=== PATIENT | female | born 1950 | race Caucasian/White ===

== ENCOUNTER → 2020-04-11 09:00 | Outpatient (BNVA) | payer MEDICARE, SELFPAY | PROVIDERS: Visit Provider Nurse Practitioner Family | DX: Z87.19 Personal history of other diseases of the digestive system (principal); Z76.89 Persons encountering health services in other specified circumstances; Z68.28 Body mass index [BMI] 28.0-28.9, adult; E03.9 Hypothyroidism, unspecified | CPT/HCPCS: 80053; 80061; 84439; 84443; 85025 ==

== ENCOUNTER → 2020-06-20 13:17 | Outpatient (BNVA) | payer MEDICARE, SELFPAY | PROVIDERS: PCP Nurse Practitioner Family; Visit Provider Nurse Practitioner Family | DX: R10.9 Unspecified abdominal pain (principal); E03.9 Hypothyroidism, unspecified; Z68.27 Body mass index [BMI] 27.0-27.9, adult | CPT/HCPCS: 81000; 84443 ==

== ENCOUNTER → 2020-08-21 09:00 | Outpatient (BNVA) | payer MEDICARE, SELFPAY | PROVIDERS: PCP Nurse Practitioner Family; Visit Provider Nurse Practitioner Family | DX: E03.9 Hypothyroidism, unspecified (principal) | CPT/HCPCS: 84443 ==

== ENCOUNTER → 2020-11-21 10:08 | Outpatient (BNVA) | payer MEDICARE, SELFPAY | PROVIDERS: PCP Nurse Practitioner Family; Visit Provider Nurse Practitioner Family | DX: R74.8 Abnormal levels of other serum enzymes (principal); E03.9 Hypothyroidism, unspecified | CPT/HCPCS: 80053; 84443 ==

== ENCOUNTER → 2021-01-22 15:03 | Outpatient (BNVA) | payer MEDICARE, SELFPAY | PROVIDERS: PCP Nurse Practitioner Family; Visit Provider Nurse Practitioner Family | DX: R74.8 Abnormal levels of other serum enzymes (principal); E03.9 Hypothyroidism, unspecified | CPT/HCPCS: 82977; 84443 ==

== ENCOUNTER 2021-04-24 11:52 | Outpatient (CLI) | payer MEDICARE, SELFPAY ==
--- NOTE | 2021-04-24 12:23 | US_ITS ---
WS: [id number] ULTRASOUND ABDOMEN CLINICAL INFORMATION: R74.8 - Abnormal levels of other serum enzymes COMPARISON: None. FINDINGS: Liver Size: Enlarged Craniocaudal length: 17.9 cm. Echogenicity: Coarse heterogeneous Surface nodularity: Mild Mass (size and location): None. Bile ducts Intrahepatic ducts: Normal. Common bile duct diameter: 0.5 cm. Gallbladder Mobile echogenic sludge balls Gallstones: None. Gallbladder sludge: Present Gallbladder wall thickening: None. Pericholecystic fluid: None. Sonographic Morse sign: Absent. Pancreas Normal as visualized. Right kidney: Normal. Hydronephrosis: None. Size: 10.3 cm x 3.5 cm x 4.3 cm. Abdominal aorta and IVC Visualized portions are normal. Ascites: None. US/US liver [id number] IMPRESSION: 1. Hepatomegaly with diffuse coarse hepatic echotexture. Recommend correlation with liver function tests. 2. Mobile echogenic sludge balls within the gallbladder. No gallbladder wall t hickening or pericholecystic fluid. 3. Normal common bile duct. 4. No Hydronephrosis in RIGHT kidney. 5. No ascites.
--- NOTE | 2021-04-24 13:30 | XR_ITS ---
WS: [id number] SCREENING DEXA SCAN [place] CLINICAL INFORMATION: Z78.0 - Asymptomatic menopausal state COMPARISON: None. FINDINGS: The L1-L4 bone mineral density measures 1.131 g/cm2. This corresponds to a T score score of -0.4 and Z score of 1.1. Left femoral neck bone mineral density measures 0.896 g/cm2. This corresponds to a T score of -0.9 an d Z score of 0.4. Right femoral neck bone mineral density measures 0.904 g/cm2. This corresponds to a T score -0.8of an d Z score of 0.5. Mean femoral neck bone mineral density measures 0.900 g/cm2. This corresponds to a T score of -0.9 an d Z score of 0.5. XR/XR DEXA axial skeleton* [id number] IMPRESSION: Normal bone mineralization. Patient's FRAX calculated 10 year probability for major osteoporotic fracture i s 8.8 % and osteoporotic hip fracture is 0.8%.
== END 2021-04-24 11:53 | disposition home or self-care (01) ==
LOC: RAD 11:59
PROVIDERS: PCP Nurse Practitioner Family; Visit Provider Nurse Practitioner Family
DX: R74.8 Abnormal levels of other serum enzymes (principal); R16.0 Hepatomegaly, not elsewhere classified; Z78.0 Asymptomatic menopausal state
CPT/HCPCS: 76705; 77080

== ENCOUNTER → 2021-06-14 14:12 | Outpatient (BNVA) | payer MEDICARE, SELFPAY | PROVIDERS: PCP Nurse Practitioner Family; Referring Provider Nurse Practitioner Family; Visit Provider Surgery | DX: K82.8 Other specified diseases of gallbladder (principal); R16.2 Hepatomegaly with splenomegaly, not elsewhere classified | CPT/HCPCS: 80053; 85025; 85049; 85384; 85610; 85730; 99203 ==

== ENCOUNTER 2021-07-19 10:45 | Outpatient (CLI) | payer MEDICARE, SELFPAY ==
[2021-07-19] MEDS: iohexol 300 mg/mL 100 mL Btl IV (13:22)
--- NOTE | 2021-07-19 15:00 | CTR_ITS ---
PROCEDURE INFORMATION: Exam: CT Abdomen And Pelvis With Contrast Exam date and time: 07/19/2021 12:44 PM Age: 71 years old Clinical indication: Pain and condition or disease; Spleen condition; Splenomegaly; Abdominal pain; Generalized; Patient HX: - lymphoma, spleenomegally, liver cirrhosis; Additional info: Abdominal pain, iv and oral TECHNIQUE: Imaging protocol: Computed tomography of the abdomen and pelvis with contrast. Sagittal and coronal reformatted images were created and reviewed. The patient was administered oral contrast. Radiation optimization: All CT scans at this facility use at least one of these dose optimization techniques: automated exposure control; mA and/or kV adjustment per patient size (includes targeted exams where dose is matched to clinical indication); or iterative reconstruction. Contrast material: OMNI 300; Contrast volume: 50 ml; Contrast route: INTRAVENOUS (IV); COMPARISON: CT chest abd pel w con* 06/15/2021 4:26 PM RADIATION DOSE METRICS: Total DLP (mGy-cm): 938.97 FINDINGS: Pleural spaces: No pleural effusion. Small left pleural effusion has resolved. Heart: Stable moderate enlargement of the visualized portions of the heart. Liver: Stable nodular contour of the liver with hypertrophy of the left hepatic lobe. Stable mild enlargement of the liver measuring 17.2 cm in length (series 6, image 52). Gallbladder and bile ducts: Few stones in the gallbladder. No gallbladder wall thickening. No biliary ductal dilatation. Pancreas: The pancreas is unremarkable. No pancreatic ductal dilatation. Spleen: Stable moderate enlargement of the spleen measuring 21.5 cm in length (series 6, image 22). Adrenal glands: The right and left adrenal glands are unremarkable. Kidneys and ureters: The right and left kidneys are unremarkable. The right and left ureters are unremarkable. Stomach and bowel: Scattered diverticula in the sigmoid colon. No evidence for diverticulitis. There is moderate wall thickening with surrounding mild to moderate inflammation of the cecum and ascending colon. No acute abnormality in the small bowel. The stomach is collapsed, which can limit evaluation. No focal abnormality in the stomach otherwise. Appendix: The appendix is visualized and is unremarkable. No findings to suggest acute appendicitis. Appendix not definitely visualized. No inflammatory changes in the pericecal region however. Intraperitoneal space: Small volume ascites and mild mesenteric edema is stable. No free intraperitoneal air. No loculated fluid collections to suggest an abscess. Vasculature: Stable moderate atherosclerotic calcifications in the visualized arteries. No evidence for aortic aneurysm or aortic dissection. Stable small/moderate paraesophageal varices and upper abdominal varices. Lymph nodes: No lymphadenopathy. Urinary bladder: The bladder is incompletely filled, which can limit evaluation. No focal abnormality in the bladder however. Reproductive: Stable changes consistent with a previous hysterectomy. The ovaries are not definitely visualized, not an expected in a postmenopausal female. This may be due to ovarian atrophy. Alternatively, the patient may have had a previous bilateral oophorectomy. Bones/joints: Degenerative changes in the spine and hips. Mild spinal canal stenosis at L1-L2 through L5-S1. Multilevel foraminal stenosis of varying severity in the lumbar spine. Soft tissues: Mild body wall edema, decreased compared with the previous CT scan. CT/CT abdomen pelvis w con* [id number] IMPRESSION: 1. Findings consistent with moderate colitis in the cecum and ascending colon. 2. Cholelithiasis. 3. Scattered diverticula in the sigmoid colon. No evidence for diverticulitis. 4. Stable hepatomegaly and cirrhotic change in the liver. Stable findings consistent with portal hypertension with moderate splenomegaly, small volume ascites/mild mesenteric edema, and variceal formation. 5. Mild body wall edema, decreased compared with the previous CT scan. 6. Incidental/nonacute findings are listed in the report.
== END 2021-07-19 10:46 | disposition home or self-care (01) ==
PROVIDERS: Visit Provider Surgery
DX: R10.9 Unspecified abdominal pain (principal); K52.9 Noninfective gastroenteritis and colitis, unspecified; K80.20 Calculus of gallbladder without cholecystitis without obstruction; R16.2 Hepatomegaly with splenomegaly, not elsewhere classified; K76.6 Portal hypertension
CPT/HCPCS: 74177

== ENCOUNTER → 2021-07-25 10:47 | Outpatient (BNVA) | payer MEDICARE, SELFPAY | PROVIDERS: Visit Provider Surgery | DX: R16.2 Hepatomegaly with splenomegaly, not elsewhere classified (principal); K76.6 Portal hypertension | CPT/HCPCS: 99213 ==